=== PATIENT | female | born 1975 | race Caucasian/White ===

== ENCOUNTER → 2021-05-25 | Day surgery (SDC) | payer OTHER ==
[~2021-05-25] VITALS: Ht 162.6 cm; Wt 78.9 kg
[~2021-05-25] MED LIST: ACYCLOVIR 400400 MG PO; ADDERALL XR 2020 MG PO; DEPO-TESTO100 MG/1 M IM; DEXTROAMP-AMPHE20 MG PO; DULOXETINE HCL60 MG PO; LEVOTHYROXINE100 MCG PO; METHYL FOLATE PO; MULTI VITAMIN1 EACH PO; NEURONTIN 300M300 M2 PO; OMEGA DHA92 MG PO; PROGESTERONE100 MG PO; VITAMIN B-12100 MC1 IM; VITAMIN D350 MC3 PO
[2021-05-25 12:50] VITALS: BP 129/85
[2021-05-25 16:02] VITALS: BP 129/85
--- NOTE | 2021-05-26 07:54 | O ---
[address] [address] OPERATIVE REPORT Name: JANICE CARVALHO Room #: REG [facility]..#: [id number] Admission: 05/25/21 Attend Phys: Ephraim Bacon MD Discharge: Date of : 79 Report #: [id number] THIS REPORT FOR: cc: Akhil Mccollum MD, David B. MD McCabe,Ephraim Reyna MD ~ DATE OF SERVICE: 05/25/2021 SERVICE: Orthopedics. FACILITY: [facility]. SURGEON: Ephraim Bacon MD CATALYST IMPREGNATOR: Kita Kaminski. INDICATIONS FOR CATALYST IMPREGNATOR: Extremity positioning, suture management, arthroscope management, assistance with repair. PREOPERATIVE DIAGNOSES: 1. Right hip pain. 2. Right hip femoral acetabular impingement. 3. Right hip labral tear. POSTOPERATIVE DIAGNOSES: 1. Right hip pain. 2. Right hip femoral acetabular impingement. 3. Right hip labral tear. PROCEDURES PERFORMED: 1. Right hip arthroscopic labral repair. 2. Right hip arthroscopic Cam osteochondroplasty. 3. Right hip arthroscopic subspine decompression. COMPLICATIONS: None. DRAINS: None. SPECIMENS: None. ANESTHESIA: General with regional. FINDINGS: 1. Anterior labral tear with anterolateral chondral wave sign, treated with Ramírez CinchLock suture anchor x2. 2. Intrasubstance labral calcinosis, treated with debridement. [address] [address] OPERATIVE REPORT Name: JANICE CARVALHO Room #: REG [facility]#: [id number] Admission: 05/25/21 Attend Phys: Ephraim Bacon MD Discharge: Date of : 79 Report #: [id number] 3. Prominent anterior inferior iliac spine requiring additional capsular work with the cautery and shaver in order to allow the extraarticular subspine decompression to address the subspine impingement. 4. Alpha angle of 57 degrees, treated with Cam osteochondroplasty. 5. A #2 Vicryl x4 for capsular repair. HISTORY: The patient is a 46-year-old female who works as a project engineer for [employer] and has had persistent progressive right hip pain that was affecting her ability to work and perform activities of daily living. She had tried rest, activity modifications, physical therapy, oral medicines, intra-articular injection and modalities, all without sufficient relief. She had imaging, was consistent with femoral acetabular impingement. The x-ray showed an alpha angle of 57 degrees consistent with Cam impingement. She had a prominent anterior inferior iliac spine, which was causing a small crossover sign on AP pelvis consistent with subspine impingement. She had no evidence of osteoarthritis, Tonnis grade 0, the MRI showed a full-thickness labral tear with a small area of chondromalacia. The risks, benefits, alternatives and indications for surgery were discussed with her in detail. Risks include but not limited to pain, bleeding, infection, injury to nerves or blood vessels, persistent pain despite surgical intervention, failure of any repairs, progression of preexisting chondral injury, stiffness, need for further surgery as well as complications related to anesthesia. DESCRIPTION OF PROCEDURE: After the right leg was identified as the surgical extremity, regional block was performed by anesthesia. Patient was taken to OR and general anesthesia w/ LMA was induced w/o complication. Padded appropriately; antibiotics administered. Right femoral head neck junction was evaluated under fluoro to confirm the extent of the cam deformity. Right leg was then prepped & draped in standard fashion. Timeout performed. Traction applied; under fluoro, anterolateral portal was established followed by mid anterior portal. There was capsular erythema and synovitis which will be the reason for continuous passive motion use postoperatively in order to reduce the risk of scarring and adhesions as these can be reasons for reoperation in this patient population. Transverse capsulotomy was completed. Intra-articular findings were noted. Femoral head cartilage was normal. Acetabular cartilage overall looked healthy other than a focal anterosuperior chondral lesion, partial thickness, that appeared stable and did not require anything beyond a light chondroplasty. There was an obvious anterior labral base tear anteriorly that extended anterolaterally incorporating a chondral wave sign. It was unstable to probing. Capsule was dissected with the shaver off the dorsal side of the labrum allowing access to the acetabular sided pathology. There was a subspine impingement lesion. Arthroscopic dissection was performed to better isolate and visualize the [address] [address] OPERATIVE REPORT Name: MAIAJANICEAMALIA SANTA Room #: REG [facility] M.R.#: [id number] Admission: 05/25/21 Attend Phys: Ephraim Bacon MD Discharge: Date of : 79 Report #: [id number] inferior aspect of the AIIS which was dense and prominent and extended all the way to the base of the labrum. Fluoroscopy was used to assist and after the AIIS was dissected and isolated, bur was used to perform a subspine decompression in standard fashion. The bur was then used to gently decorticate the acetabular rim to create a fresh bleeding surface for labral repair and then Ramírez CinchLock suture anchor x2 were used to perform this repair, which provided good reduction of the labrum against the acetabular rim and compression. It was then probed and there was a significant improved stability of the labrum and the cartilage. Scope was then placed anteriorly. Working portal was made laterally. We assessed the repair again from this perspective and confirmed a satisfactory repair had been achieved and then traction was let down, hip was flexed up, attention was turned towards the peripheral compartment. Transverse capsulotomy was extended down the femoral neck in a T fashion allowing access to the entire Cam deformity and then the bur was used to perform a Cam osteoplasty in standard fashion. I removed the instruments, brought C-arm in and assessed the resection, identified some additional bone distally that needed to be resected and placed the instruments back in the hip, continued with the Cam osteoplasty and then once again, removed the instruments and brought C-arm in. At this point, I felt like there was still some bone over the proximal lateral shoulder and placed the instruments back in the hip and then completed the Cam osteoplasty and then lavaged the bony debris out of the hip, removed the instruments, a third time brought C-arm in and assessed and confirmed adequate Cam resection had been completed. Final photographs were taken. Instruments were placed back into the hip. The T-shaped capsulotomy was closed with a total of four #2 Vicryl sutures. Instruments were removed. Portal sites were closed. Sterile dressing was applied. The patient was awakened from anesthesia and taken to recovery room in stable condition. No complications. All counts were correct. <ELECTRONICALLY SIGNED> By: Ephraim Bacon MD 05/26/21 [id number] Ephraim Bacon MD /nt
== END | disposition home or self-care (01) ==
LOC: OR 08:49
PROVIDERS: ATTEND Orthopaedic Surgery Sports Medicine
DX: M25.551 Pain in right hip (principal); M25.851 Other specified joint disorders, right hip; S73.101A Unspecified sprain of right hip, initial encounter; E03.9 Hypothyroidism, unspecified; F32.9 Major depressive disorder, single episode, unspecified; F41.9 Anxiety disorder, unspecified; Z98.890 Other specified postprocedural states; Z79.899 Other long term (current) drug therapy; Z88.2 Allergy status to sulfonamides; X58.XXXA Exposure to other specified factors, initial encounter; Y93.89 Activity, other specified; Y92.89 Other specified places as the place of occurrence of the external cause; Y99.8 Other external cause status
CPT/HCPCS: 50010; 50101; 50386; 51320; 51538; 52001; 52282; 52304; 52313; 56524; 56527; 57092; 57103; 58273; 58274; 58557; 58558; 58559; 58560; 58561; 58562; 58563; 58564; 58608; 62110; 62900; 64043; 65060; 70005